=== PATIENT | male | born 1960 | race Caucasian/White ===

== ENCOUNTER 2023-06-27 08:56 | Outpatient (CLI) | payer MEDICAID, SELFPAY | END 2023-06-27 08:57 | disposition home or self-care (01) | PROVIDERS: PCP Physician Assistant Medical; Visit Provider Physician Assistant Medical | DX: R41.89 Other symptoms and signs involving cognitive functions and awareness (principal); R07.9 Chest pain, unspecified; Z13.228 Encounter for screening for other metabolic disorders; Z13.220 Encounter for screening for lipoid disorders | CPT/HCPCS: 80053; 80061; 82306; 82607; 84207; 84425; 84443; G0103 ==

== ENCOUNTER 2023-07-03 13:31 | Outpatient (CLI) | payer OTHER, SELFPAY ==
[2023-07-03] MEDS: PERFLUTREN LIPID MICROSPHERES 2 ML VIAL IV (14:23)
[2023-07-03] MEDS: ASPIRIN 81 MG TAB.CHEW PO (14:45)
[2023-07-03 15:00] VITALS: BP 164/104; PULSE 83
--- NOTE | 2023-07-03 15:16 | PM.ST ---
Stress Test Note Date Date Seen: 07/03/23 Date of test: 07/03/23 Providers Primary care provider: Courtney Mccabe Stress test physician: Ernst Ashby Stress Test Note Stress test ordered: Stress Echo Indication for test: chest pain Stress test medicine: Definity Results discussion: Patient is a very nice 62-year-old gentleman who presents here with a history of chest discomfort. Cardiac stress test medical history form is reviewed, he does have some risk factors for coronary disease including hyperlipidemia hypertension and a family history. After discussion the risks benefits and side effects he would like to proceed. Pretest EKG shows normal sinus rhythm with a ventricular rate of 69 and a blood pressure 136/84. No acute ST wave changes, no dysrhythmias. Standard David protocol with definity was used, patient exercised for a total time of 7 minutes 53 seconds, achieved a metabolic equivalent of 9.5 Mets with a maximum heart rate of 150 peer he did develop some chest pain, with radiation into his the anterior chest and neck region. At approximately 6-1/2 minutes. This resolved in recovery over approximately 2-3 minute. This was characteristic of previous chest pain that he has noted. No treatment was needed. Review of the tracing showed a lot of artifact, worsening T-wave inversion is notable in leads V1 and V2. Hyperacute T-waves are also noted across the lateral precordium. These resolved in his tracing was back to baseline. Patient was given aspirin 80 mg x 1. And told to take this daily. He was also given a prescription for nitroglycerin 0.4 mg SL p.r.n., explained to him how to use this, he may repeat this x1, after approximately 5 minutes if his chest pain did not go away. He will promptly report to the emergency department if ongoing chest pain or more appropriately call 911. I then spoke to his primary care provider, Courtney Mccabe, informed her of the positive test result, and the echo result which showed basal hypokinesis and likely positive stress test. Impression: Positive electrographic portion of stress test, both subjective and objective, with above changes, suspect positive echo. Follow up suggested: As patient is pain-free, back to baseline, I have instructed him to avoid exercise for stress, take his aspirin, uses nitroglycerin as needed and directed, report to the emergency room if he has ongoing symptoms. We will have Cardiology review this. And then have his primary care physician follow-up with either an urgent cardiology consult or other care.
== END 2023-07-03 13:32 | disposition home or self-care (01) ==
LOC: STRESS 13:32
PROVIDERS: PCP Physician Assistant Medical; Visit Provider Family Medicine
DX: R07.9 Chest pain, unspecified (principal)
CPT/HCPCS: 93016; 93325; 93351; A9270; Q9957

== ENCOUNTER 2023-09-18 11:37 | Outpatient (CLI) | payer OTHER, SELFPAY | END 2023-09-18 11:38 | disposition home or self-care (01) | LOC: LKVREF 11:39 | PROVIDERS: PCP Physician Assistant Medical; Visit Provider Family Medicine | DX: M79.672 Pain in left foot (principal); M10.9 Gout, unspecified; E78.5 Hyperlipidemia, unspecified; I10 Essential (primary) hypertension | CPT/HCPCS: 80061; 80076; 84550 ==

== ENCOUNTER 2023-11-16 06:58 | Outpatient (CLI) | payer OTHER, SELFPAY ==
--- NOTE | 2023-11-16 07:15 | CRLHL7_ITS ---
For Patients: As a result of the Century Cures Act, medical imaging exams and procedure reports are released immediately into your electronic medical record. You may view this report before your referring provider. If you have questions, please contact your health care provider. Indication: Vision change. Technique: Multiplanar, multisequence MRI of the brain was performed without intravenous contrast. Comparison: None relevant available. Findings: The corpus callosum, pituitary gland clivus appear intact. Mild degenerative change visualized upper cervical spine. There is no restricted diffusion. No intracranial hemorrhage. The ventricles are proportionate to the cerebral sulci. The 4th ventricle appears midline. The basal cisterns appear patent. No abnormal extra-axial fluid collection identified. Mild parenchymal volume loss. Mild scattered T2 FLAIR hyperintense foci within the subcortical and periventricular white matter, favored to represent chronic ischemic microvascular disease. There is no intracranial mass, abnormal mass-effect or midline shift identified. Major intracranial vascular flow voids appear grossly intact. Both globes are preserved. Moderate paranasal sinus mucosal disease. Moderate right mastoid effusion. Impression: 1. No acute intracranial process. 2. Mild chronic ischemic microvascular disease. 3. Moderate paranasal sinus and right mastoid disease. Dictated by Eyad Murillo MD @ 11/16/2023 10:12:50 AM (Electronically Signed)
== END 2023-11-16 06:59 | disposition home or self-care (01) ==
LOC: MRI 06:59
PROVIDERS: PCP Physician Assistant Medical; Visit Provider Physician Assistant Medical
DX: H53.9 Unspecified visual disturbance (principal); I67.82 Cerebral ischemia; R41.89 Other symptoms and signs involving cognitive functions and awareness
CPT/HCPCS: 70551

== ENCOUNTER 2023-12-19 08:05 | Outpatient (CLI) | payer OTHER, SELFPAY | END 2023-12-19 08:06 | disposition home or self-care (01) | LOC: NFLDREF 12-21 15:21 | PROVIDERS: PCP Physician Assistant Medical; Referring Provider Physician Assistant Medical; Visit Provider Physician Assistant Medical | DX: E78.5 Hyperlipidemia, unspecified (principal) | CPT/HCPCS: 80061 ==

== ENCOUNTER 2024-05-08 06:27 | Outpatient (CLI) | payer OTHER, SELFPAY ==
--- NOTE | 2024-05-08 07:52 | P.ANES_ITS ---
Anesthesia Charges Start Date/Time Anesthesia Start Date: 05/08/24 Anesthesia Start Time: 07:05 Stop Date/Time Anesthesia Stop Date: 05/08/24 Anesthesia Stop Time: 07:50 Coding CPT Codes CPT Codes: ANES LWR INTST NDSC NOS - 84378 ([id number]) P3 - PATIENT W/SEVERE SYS DISEASE, QX - PRECISION MACHINIST SVC W/ MD MED DIRECTION, QK - MEAT CUTTING BLOCK REPAIRER 2-4 CNCRNT ANES PROC
--- NOTE | 2024-05-08 07:52 | W.ANESCHARGE ---
Anesthesia Charges Start Date/Time Anesthesia Start Date: 05/08/24 Anesthesia Start Time: 07:05 Stop Date/Time Anesthesia Stop Date: 05/08/24 Anesthesia Stop Time: 07:50 Coding CPT Codes CPT Codes: ANES LWR INTST NDSC NOS - 34335 ([id number]) P3 - PATIENT W/SEVERE SYS DISEASE, QX - TUG CAPTAIN SVC W/ MD MED DIRECTION, QK - MOTO MIX OPERATOR 2-4 CNCRNT ANES PROC
--- NOTE | 2024-05-08 08:39 | P.ANES_ITS ---
Anesthesia Charges Start Date/Time Anesthesia Start Date: 05/08/24 Anesthesia Start Time: 07:05 Stop Date/Time Anesthesia Stop Date: 05/08/24 Anesthesia Stop Time: 07:50 Coding CPT Codes CPT Codes: ANES LWR INTST NDSC NOS - 24250 ([id number]) QK - MEDIA SERVICES DIRECTOR 2-4 CNCRNT ANES PROC, QX - COUNSELING CENTER MANAGER SVC W/ MED DIRECTION, P3 - PATIENT W/SEVERE SYS DISEASE
--- NOTE | 2024-05-08 08:39 | W.ANESCHARGE ---
Anesthesia Charges Start Date/Time Anesthesia Start Date: 05/08/24 Anesthesia Start Time: 07:05 Stop Date/Time Anesthesia Stop Date: 05/08/24 Anesthesia Stop Time: 07:50 Coding CPT Codes CPT Codes: ANES LWR INTST NDSC NOS - 31105 ([id number]) QK - POLYMER SCIENTIST 2-4 CNCRNT ANES PROC, QX - HOME HEALTH AID SVC W/ MED DIRECTION, P3 - PATIENT W/SEVERE SYS DISEASE
== END 2024-05-08 06:28 | disposition home or self-care (01) ==
LOC: OP CLINIC 06:29
PROVIDERS: PCP Physician Assistant Medical; Visit Provider Surgery
DX: Z12.11 Encounter for screening for malignant neoplasm of colon (principal); D12.3 Benign neoplasm of transverse colon; D17.5 Benign lipomatous neoplasm of intra-abdominal organs; Z86.0100 Personal history of colon polyps, unspecified
CPT/HCPCS: 00811; 45381; 45385; 88305; J2704

== ENCOUNTER 2024-08-18 07:58 | Outpatient (CLI) | payer OTHER, SELFPAY | END 2024-08-18 07:59 | disposition home or self-care (01) | LOC: NFLDREF 08-19 22:08 | PROVIDERS: PCP Physician Assistant Medical; Referring Provider Physician Assistant Medical; Visit Provider Physician Assistant Medical | DX: D72.819 Decreased white blood cell count, unspecified (principal); E78.5 Hyperlipidemia, unspecified; I10 Essential (primary) hypertension; R79.89 Other specified abnormal findings of blood chemistry; M10.9 Gout, unspecified; Z12.5 Encounter for screening for malignant neoplasm of prostate | CPT/HCPCS: 80053; 80061; 84443; 84550; G0103 ==

== ENCOUNTER 2024-09-08 08:34 | Outpatient (CLI) | payer OTHER, SELFPAY ==
--- NOTE | 2024-09-08 09:00 | CRLHL7_ITS ---
For Patients: As a result of the Century Cures Act, medical imaging exams and procedure reports are released immediately into your electronic medical record. You may view this report before your referring provider. If you have questions, please contact your health care provider. Indication: ABNORMAL FINDINGS ON CXR Technique: Noncontrast CT chest Please note that all CT scans at this facility use dose modulation, iterative reconstruction, and/or weight-based dosing when appropriate to reduce radiation dose to as low as reasonably achievable. Comparison: Chest x-ray 08/20/2024 Findings: Mediastinal and bilateral hilar adenopathy with lymph nodes measuring up to approximately 2.1 cm. Dense calcifications in the LAD. Moderate calcifications elsewhere within the coronary arteries. Upper abdomen unremarkable. No pleural or pericardial effusion. Emphysematous changes within the pulmonary parenchyma. Dependent scarring/fibrosis. No fracture. Impression: Bulky mediastinal and bilateral hilar adenopathy. Findings could suggest lymphoma or sarcoid. CT PET recommended for further evaluation. Please note that all CT scans at this facility use dose modulation, iterative reconstruction, and/or weight-based dosing when appropriate to reduce radiation dose to as low as reasonably achievable. Dictated by Ran King MD @ 09/08/2024 10:27:39 AM (Electronically Signed)
== END 2024-09-08 08:35 | disposition home or self-care (01) ==
PROVIDERS: PCP Physician Assistant Medical; Visit Provider Physician Assistant Medical
DX: R93.89 Abnormal findings on diagnostic imaging of other specified body structures (principal); R59.0 Localized enlarged lymph nodes
CPT/HCPCS: 71250

== ENCOUNTER 2024-10-02 12:42 | Outpatient (CLI) | payer OTHER, SELFPAY ==
--- NOTE | 2024-10-02 15:30 | CRLHL7_ITS ---
For Patients: As a result of the Century Cures Act, medical imaging exams and procedure reports are released immediately into your electronic medical record. You may view this report before your referring provider. If you have questions, please contact your health care provider. EXAM: FDG PET-CT Skull Base to Thighs CLINICAL INFORMATION: 63-year-old man with history of lymphadenopathy seen on prior CT chest. PET CT ordered for additional characterization. TECHNIQUE: Radiopharmaceutical: 18F-fluorodeoxyglucose (18F-FDG) Dose: 10.48 MilliCurie. Blood glucose: 91 mg/dL. Image acquisition: At approximately 60 minutes following IV tracer administration via a right hand vein, positron emission tomography was performed from the skull base through the mid thigh. Non-contrast low-dose helical CT imaging was performed over the same range without breath-hold for attenuation correction of PET images and anatomic correlation; it is neither sufficient, nor should it be substituted for diagnostic purposes. COMPARISON: CT chest 09/08/2024 FINDINGS: Mediastinal blood pool FDG uptake: SUVMax 3.2 (image 104) Liver background parenchymal FDG uptake: SUVMax 3.6 (image 142) PET Findings: Multiple FDG avid bilateral parotid nodules likely representing intraparotid lymph nodes and multistation FDG avid lymphadenopathy above and below diaphragm including bilateral cervical suyapa stations and mediastinal, hilar, subpectoral, axillary, retroperitoneal and pelvic lymph nodes, for example as below: * 1.6 x 0.8 cm right level 4A cervical node, SUVmax 10.1, (image 66) * 2.4 x 1.8 cm FDG avid right lower paratracheal nodule, SUVmax 20.8, (image 94) * 5.3 x 3.5 cm right hilar suyapa conglomerate, SUVmax 19.5, (image 103) * 1.5 x 1.5 cm left hilar node SUVMax 21.6 (image 106) * 3.4 x 2.1 cm subcarinal node, SUVmax 22.0, (image 103) * 1.3 x 0.6 cm retrocaval node, SUVmax 18.6, (301:168, 202:169) * 1.2 x 0.8 cm left inguinal node, SUVmax 9.2, (image 251) * 1.1 x 0.9 cm right inguinal node, SUVmax 13.4, (image 253) Enlarged lymph nodes are only demonstrated in the mediastinal and bilateral hilar suyapa stations. *1.0 x 0.7 cm pulmonary nodule in the right middle lobe SUVMax 3.7 (image 112) No abnormal FDG uptake in the visualized skeleton. Tracer uptake elsewhere is physiologic. Non-PET findings: Partial opacification of bilateral maxillary sinuses. Upper lung predominant emphysema. Coronary artery calcifications. Atherosclerotic calcifications of the thoracic and abdominal aorta. Degenerative changes in the spine. IMPRESSION: 1. Intensely FDG avid lymphadenopathy above and below diaphragm, with enlarged lymph nodes only demonstrated in the mediastinal and bilateral hilar suyapa stations. Findings are nonspecific for a metabolically active lymphoma versus an inflammatory process such as sarcoidosis. Correlate with tissue sampling. Consideration can be given to the examples of enlarged mediastinal nodes. 2. Solitary moderately FDG avid 1.0 cm pulmonary nodule in the right middle lobe is nonspecific for a primary lung neoplasm versus an inflammatory intrapulmonary lymph node. Correlate with prior CT chest studies, if available. Otherwise recommend correlation with tissue sampling pathology to exclude a lung neoplasm versus repeat CT chest in 3 months. Dictated by Raj Brizuela MD @ 10/03/2024 3:05:32 PM (Electronically Signed)
== END 2024-10-02 12:43 | disposition home or self-care (01) ==
PROVIDERS: PCP Physician Assistant Medical; Visit Provider Physician Assistant Medical
DX: R59.0 Localized enlarged lymph nodes (principal)
CPT/HCPCS: 78815; A9552

== ENCOUNTER 2025-01-19 10:02 | Outpatient (CLI) | payer MEDICARE, BC, SELFPAY | END 2025-01-19 10:03 | disposition home or self-care (01) | LOC: LKVREF 10:04 | PROVIDERS: PCP Physician Assistant Medical; Visit Provider Physician Assistant Medical | DX: R07.9 Chest pain, unspecified (principal) | CPT/HCPCS: 80053 ==

== ENCOUNTER 2025-01-22 14:34 | Outpatient (CLI) | payer MEDICARE, BC, SELFPAY ==
[2025-01-22 15:35] VITALS: BP 140/72; PULSE 87; RESP 16
--- NOTE | 2025-01-22 15:41 | P.STN_ITS ---
Stress Test Note Date Date Seen: 01/22/25 Date of test: 01/22/25 Providers Primary care provider: Courtney Mccabe Stress test physician: Aleta Cooper Stress Test Note Stress test ordered: Stress Echo Indication for test: Chest pain, history CAD with prior stents [facility] Results discussion: Resting EKG: Sinus rhythm, 75 beats per minute. Isolated flipped T-waves V1 without any ST segment change. Resting blood pressure: 126/80 Stress test: Patient is consented on ordered stress test of exercise treadmill stress echo and agrees to proceed. Standard David protocol was followed. Patient was able to exercise 8 minutes 41 seconds, requesting to stop because his legs were becoming tired. He was at target heart rate. This is equivalent to 10.3 Mets. He had a maximum heart rate of 139 beats per minute which was 105% of a calculated target heart rate of 132. He had a rate pressure product of 22,518. Patient had no diagnostic ischemic change on EKG monitoring, no symptoms, no arrhythmia. Await echo images to couple this for a full formal diagnostic. Impression: Subjectively negative, objectively negative EKG portion of this stress test, await echo images to couple this for a full formal diagnostic. Follow up suggested: Patient is discharged in stable condition. He will await results from his ordering provider.
== END 2025-01-22 15:53 | disposition home or self-care (01) ==
LOC: STRESS 14:36
PROVIDERS: PCP Physician Assistant Medical; Visit Provider Physician Assistant Medical
DX: R07.9 Chest pain, unspecified (principal)
CPT/HCPCS: 93016; 93325; 93351

== ENCOUNTER 2025-02-10 12:19 | Outpatient (CLI) | payer MEDICARE, BC, SELFPAY ==
--- NOTE | 2025-03-10 12:06 | W.PM.SLEEP ---
Sleep Study Details Details Interpreting Provider: Jj Date of Sleep Study: 02/10/25 Sleep Study Details: STUDY TYPE:? Home unattended BMI:? 30.28 ORDERING PROVIDER:Bijan Mccabe INDICATION:? Concern for sleep apnea ? SLEEP SUMMARY:? 483 minutes monitored RESPIRATORY SUMMARY:? AHI 24.5 rule 1 a, 21.2 cm S guideline Low oxygen 87 0.7% of study oxygen less than 90% Snoring 50.3% PERIODIC LIMB MOVEMENTS OF SLEEP:? Not recorded CARDIAC:? Range 56-105, mean 67.4 beats per minute IMPRESSION:? Moderate obstructive sleep apnea RECOMMENDATION: Treatment options include CPAP dental appliance and/or airway expansion surgery. Would favor CPAP.
== END 2025-02-10 12:20 | disposition home or self-care (01) ==
PROVIDERS: PCP Physician Assistant Medical; Visit Provider Physician Assistant Medical
DX: G47.33 Obstructive sleep apnea (adult) (pediatric) (principal)
CPT/HCPCS: 95806